=== PATIENT | female | born 1985 | race Hispanic/Latino ===

== ENCOUNTER 2020-07-05 21:30 | Emergency (ER) | payer SELFPAY ==
[2020-07-06 00:28] LABS: Bacteria,Urine 4+ /HPF (Negative); Bilirubin,Urine NEG (Negative); Blood,Urine NEG (Negative); Color,Urine Amber (Yellow); Mucus,Urine 3+ /HPF
[2020-07-06 00:34] LABS: Amphetamine Screen,Urine PRESUMPTIVE POSITIVE; Benzodiazepines Screen,Urine PRESUMPTIVE NEGATIVE; Cannabinoid Screen,Urine PRESUMPTIVE POSITIVE; Cocaine Screen,Urine PRESUMPTIVE NEGATIVE; Methadone Screen,Urine PRESUMPTIVE NEGATIVE; Opiate Screen,Urine PRESUMPTIVE NEGATIVE
[2020-07-06 00:41] LABS: BUN/Creatinine Ratio 18; Blood Urea Nitrogen 16 mg/dL (7-17); Calcium 9.4 mg/dL (8.4-10.2); Hemolysis Index 14
[2020-07-06 01:07] LABS: Basophils % (Auto) 0.6 % (0.0-1.8); Eosinophils # (Auto) 0.2 K/mm3 (0.0-0.4); Eosinophils % (Auto) 2.6 % (0.0-4.3); Hematocrit 40.7 % (30.3-42.9); Hemoglobin 13.7 gm/dl (10.1-14.3); Lymphocytes # (Auto) 1.6 K/mm3 (1.2-5.4); Lymphocytes % (Auto) 22.1 % (13.4-35.0); Mean Corpuscular HGB Conc 34 % (30-34); Mean Corpuscular Volume 94 fl (79-97); Monocytes # (Auto) 0.5 K/mm3 (0.0-0.8); Monocytes % (Auto) 6.7 % (0.0-7.3); Platelet Count 219 K/mm3 (140-440); Red Blood Count 4.33 M/mm3 (3.65-5.03); Red Cell Distribution Width 13.4 % (13.2-15.2)
--- NOTE | 2020-07-06 06:48 | Emergency Department Report ---
ED Psych HPI - General Chief Complaint: Psych Stated Complaint: MH EVAL/SUICIDAL Time Seen by Provider: 07/06/20 06:11 Source: patient Mode of arrival: Ambulatory - History of Present Illness Initial Comments: 34-year-old female presents to ED for mental health evaluation. Patient has expressed some suicidal ideations to her family, saying she does not want to be in this world anymore and that her family would be better off without her. Patient reports she is with 2 children. States they are currently living with her [id number]. Patient reports a family history of depression in her mother, but states she has never been diagnosed with any psychiatric illness. Patient denies any current SI , HI, hallucinations. She also denies any drug and alcohol use. I asked patient why her family thinks that she is currently suicidal, however patient does not have an answer for me. MD Complaint: suicidal ideation -: unknown History of same: Yes Improves With: none Worsens With: none Associated Symptoms: denies other symptoms Treatments Prior to Arrival: none - Related Data Home Medications Medication Instructions Recorded Confirmed Last Taken Sertraline 100 mg PO DAILY 07/06/20 07/06/20 Unknown hydrOXYzine 25 mg PO Q6H PRN 07/06/20 07/06/20 Unknown Allergies Allergy/AdvReac Type Severity Reaction Status Date / Time No Known Allergies Allergy Unverified 07/05/20 23:59 ED Review of Systems ROS: Stated complaint: MH EVAL/SUICIDAL Other details as noted in HPI Comment: All other systems reviewed and negative Psychiatric: suicidal thoughts ED Past Medical Hx - Past Medical History Previous Medical History?: Yes Hx Psychiatric Treatment: Yes (Depression, Insominia) - Surgical History Past Surgical History?: No - Social History Smoking Status: Never Smoker Substance Use Type: None - Medications Home Medications: Home Medications Medication Instructions Recorded Confirmed Last Taken Type Sertraline 100 mg PO DAILY 07/06/20 07/06/20 Unknown History hydrOXYzine 25 mg PO Q6H PRN 07/06/20 07/06/20 Unknown History ED Physical Exam - General Limitations: No Limitations General appearance: alert, in no apparent distress - Head Head exam: Present: atraumatic, normocephalic - Eye Eye exam: Present: normal appearance, EOMI - ENT ENT exam: Present: mucous membranes moist - Neck Neck exam: Present: normal inspection - Respiratory Respiratory exam: Present: normal lung sounds bilaterally. Absent: respiratory distress - Cardiovascular Cardiovascular Exam: Present: regular rate, normal rhythm - GI/Abdominal GI/Abdominal exam: Absent: distended - Extremities Exam Extremities exam: Present: normal inspection - Neurological Exam Neurological exam: Present: alert, oriented X3 - Psychiatric Psychiatric exam: Present: depressed. Absent: suicidal ideation - Skin Skin exam: Present: warm, dry, intact, normal color ED Course Vital Signs 07/05/20 23:38 Temperature 97.7 F Pulse Rate 61 Respiratory 16 Rate Blood Pressure 157/78 O2 Sat by Pulse 100 Oximetry ED Medical Decision Making - Lab Data Result diagrams: 07/06/20 00:09 07/06/20 00:09 - Medical Decision Making 34-year-old female brought in by family for mental health evaluation. Patient has stated that she does not want to be in this world anymore and that her family would be better off without her. Family concerned about possible suicidal thoughts. Patient reports she has had some suicidal ideation previously, but she denies it currently. I asked patient why her family thinks that she is currently suicidal, however patient does not have an answer for me. Patient also denied any drug use, however her drug screen is positive for amphetamine and marijuana. Patient has been placed on 1013. She is medically clear for mental health evaluation. Critical care attestation.: If time is entered above; I have spent that time in minutes in the direct care of this critically ill patient, excluding procedure time. ED Disposition Condition: Stable Referrals: KELLIE CASTANEDA MD [Primary Care Provider] - 3-5 Days
[2020-07-06] MEDS ORDERED: POTASSIUM CHLORIDE ER 20 MEQ TAB PO ONE (06:50)
--- NOTE | 2020-07-06 10:09 | Consultation ---
History of Present Illness - Reason for Consult Consult date: 07/06/20 Reason for consult: suicidal thoughts - History of Present Psychiatric Illness Per ED assessment, "34-year-old female presents to ED for mental health evaluation. Patient has expressed some suicidal ideations to her family, saying she does not want to be in this world anymore and that her family would be better off without her. Patient reports she is with 2 children. States they are currently living with her [id number]. Patient reports a family history of depression in her mother, but states she has never been diagnosed with any psychiatric illness. Patient denies any current SI , HI, hallucinations. She also denies any drug and alcohol use." During my interview with the patient, she is awake, and pleasant. The patient says she was brought here because her family thinks she is suicidal. When asked did she feel this way, the patient says "I'm just tired of living." She says "and I'm tired of being ostracized by the people who are supposed to hold me close." She says she feels "just tired and want to move on but things keep happening to set her back." She says she had a suicide attempt a year ago. She says she was under "severe duress." The patient also says she was admitted once for "severe stress." The patient also verbalizes hallucinations by "flashing lights." She says "but they are not harmful." She says she was diagnosed with depression in the past and took zoloft. The patient says she "literally lost the entire side of her family last year except her mother." The patient verbalizes use of THC, but denies any other illicit drug use or alcohol. PAST PSYCHIATRIC HISTORY Diagnoses: Depression Suicide attempts or Self-harm behavior: "once" Prior psychiatric hospitalizations: Once Substance Abuse history: THC Previous psychiatric medications tried: Zoloft and hydroxyzine Outpatient treatment: Denies at present PAST MEDICAL HISTORY: none reported Family Psychiatric History: None reported or documented SOCIAL HISTORY Marital Status: Living Arrangements: Lives with family Employment Status: Unemployed Access to guns/weapons: Denies Education: high school History of Abuse: none reported Legal History: none reported REVIEW OF SYSTEMS Constitutional: Negative for weight loss ENT: Negative for stridor Respiratory: Negative for cough or hemoptysis All other systems reviewed and are negative MENTAL STATUS EXAMINATION General Appearance and Behavior: Age appropriate, good hygiene, wearing appropriate clothes, good eye contact, cooperative polite with questioning. Cooperation: Participating/engaged Psychomotor Behavior: unremarkable and within normal limits Mood: "down" Affect and affective range: congruent with mood Thought Process: goal directed Thought Content: hallucinations, suicidal thoughts Speech: Normal volume, Regular rate and rhythm, Intellectual Functioning: Average Suicidal Ideation: Passive Homicidal Ideation: Denies HI Impulse Control: Normal Insight and Judgment: Limited insight and judgment, Memory: Normal, Attention: Normal, Orientation: Alert, oriented, Assessment and Plan (1) Major Depressive Disorder (F33.1) Current Visit: Yes Status: Acute Treatment Start Zoloft 25mg po daily Start Abilify 5mg po daily Sitter: Per primary Medical: Per primary Disposition: Recommend acute inpatient psychiatric treatment. Case staffed with Dr. Oshea Will follow. Medications and Allergies Allergies Allergy/AdvReac Type Severity Reaction Status Date / Time No Known Allergies Allergy Unverified 07/05/20 23:59 Home Medications Medication Instructions Recorded Confirmed Last Taken Type Sertraline 100 mg PO DAILY 07/06/20 07/06/20 Unknown History hydrOXYzine 25 mg PO Q6H PRN 07/06/20 07/06/20 Unknown History Mental Status Exam - Vital signs Last Vital Signs Temp 97.7 F 07/06/20 06:50 Pulse 66 07/06/20 06:50 Resp 15 07/06/20 06:50 BP 117/89 07/06/20 06:50 Pulse Ox 99 07/06/20 06:50 Results Result Diagrams: 07/06/20 00:09 07/06/20 00:09 Abnormal lab results 07/06/20 07/06/20 07/06/20 Range/Units 00:07 00:09 00:09 Potassium (3.6-5.0) mmol/L Glucose (65-100) mg/dL Ur Specific [place] 1.032 H (1.003-1.030) Urine WBC (Auto) 9.0 H (0.0-6.0) /HPF Salicylates < 0.3 L (2.8-20.0) mg/dL Acetaminophen 5.0 L (10.0-30.0) ug/mL 07/06/20 Range/Units 00:09 Potassium 3.2 L (3.6-5.0) mmol/L Glucose 173 H (65-100) mg/dL Ur Specific [place] (1.003-1.030) Urine WBC (Auto) (0.0-6.0) /HPF Salicylates (2.8-20.0) mg/dL Acetaminophen (10.0-30.0) ug/mL All other labs normal.
[2020-07-06] MEDS: ARIPiprazole 5 MG TAB PO SCH (10:44)
[2020-07-06] MEDS: SERTRALINE 25 MG TAB PO SCH (10:44)
--- NOTE | 2020-07-07 08:09 | Progress Note ---
Subjective - Reason for Consult Consult date: 07/07/20 Reason for consult: SI - Chief Complaint Chief complaint: The patient is in bed awake. She is a/o x 3. She is calm and cooperative. Her mood appears elevated. She says she's doing "great," and slept "great." The patient denies SI/HI this morning, and states "I can't figure out why my family thinks this." When telling the patient when she was speaking to me yesterday she was giving indications of passive suicide. The patient then starts to say that at times it's hard for her to distinguish what reality is and what is not. 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 The patient says "If they are stuck, I feel like I need to help them. I'm not afraid of the . I pray to God that the spirits are not evil." She then says "I help get them to the place they need to be." The patient still verbalizes seeing flashes of light. REVIEW OF SYSTEMS Constitutional: Negative for weight loss ENT: Negative for stridor Respiratory: Negative for cough or hemoptysis All other systems reviewed and are negative MENTAL STATUS EXAMINATION General Appearance and Behavior: Age appropriate, good hygiene, wearing appropriate clothes, good eye contact, cooperative polite with questioning. Cooperation: Participating/engaged Psychomotor Behavior: unremarkable and within normal limits Mood: "down" Affect and affective range: congruent with mood Thought Process: illogical Thought Content: hallucinations, suicidal thoughts Speech: Normal volume, Regular rate and rhythm, Intellectual Functioning: Average Suicidal Ideation: Passive Homicidal Ideation: Denies HI Hallucinations: Visual Delusions: yes Impulse Control: Normal Insight and Judgment: Limited insight and judgment, Memory: Normal, Attention: Normal, Orientation: Alert, oriented, Assessment and Plan (1) Major Depressive Disorder (F33.1) Current Visit: Yes Status: Acute Treatment Continue Abilify and zoloft. Sitter: Per primary Medical: Per primary Disposition: Recommend acute inpatient psychiatric treatment. Case staffed with Dr. Oshea Will follow. Mental Status Exam - Vital signs Last Vital Signs Temp 97.6 F 07/07/20 07:49 Pulse 68 07/07/20 07:49 Resp 20 07/07/20 07:49 BP 104/69 07/07/20 07:49 Pulse Ox 96 07/07/20 07:49
[2020-07-07] MEDS: SERTRALINE 25 MG TAB PO SCH (11:54)
[2020-07-07] MEDS: ARIPiprazole 5 MG TAB PO SCH (11:54)
[2020-07-07 14:16] LABS: HCG Qualitative,Urine Negative (Negative)
[2020-07-08 08:38] VITALS: BP 109/65
--- NOTE | 2020-07-08 08:44 | Progress Note ---
Subjective - Reason for Consult Consult date: 07/08/20 Reason for consult: SI - Chief Complaint Chief complaint: The patient is in bed awake. She is a/o x 3. She is calm and cooperative. Her mood is pleasant. She greets me upon entering the room. She says her mood is "pretty good." The patient states "I've gotten much needed rest since being here." She says "my thoughts are so much clearer." The patient denies SI/HI. She states "I really never was, I think I was really just tired and maybe didn't word it right." When asking about the flashing lights, the patient replies "at times, but that has been going on awhile." The patient states, "I do believe in spirits and there a lot of people who believe in stuff like that but does that make them crazy." She says "but I do understand how somebody who doesn't understand it might think that." REVIEW OF SYSTEMS Constitutional: Negative for weight loss ENT: Negative for stridor Respiratory: Negative for cough or hemoptysis All other systems reviewed and are negative MENTAL STATUS EXAMINATION General Appearance and Behavior: Age appropriate, good hygiene, wearing appropriate clothes, good eye contact, cooperative polite with questioning. Cooperation: Participating/engaged Psychomotor Behavior: unremarkable and within normal limits Mood: "pretty good" Affect and affective range: congruent with mood Thought Process: logical Thought Content: None Speech: Normal volume, Regular rate and rhythm Suicidal Ideation: Denies Homicidal Ideation: Denies Hallucinations: Visual Delusions: None elicited Impulse Control: Normal Insight and Judgment: Limited insight and judgment, Memory: Normal, Attention: Normal, Orientation: Alert, oriented, Assessment and Plan (1) Major Depressive Disorder (F33.1) Current Visit: Yes Status: Acute Treatment Scripts Abilify 5mg po daily Zoloft 25mg po daily Sitter: Per primary Medical: Per primary Disposition: Do not recommend acute inpatient psychiatric treatment. The patient verbalized understanding that if suicidal thoughts are to arise or any fear of endangerment, she is to seek immediate assistance including 911, ER or the crisis hotline. The sewer line repairer is to further discuss the safety plan with the patient The patient is to follow up with outpatient psych in 7 to 14 days upon discharg e. The sewer line repairer is to give the patient outpatient resources for medication management and CBT Will sign off. Thank you for this consult. Case staffed with Dr. Oshea. \\ Mental Status Exam - Vital signs Last Vital Signs Temp 98.6 F 07/08/20 01:00 Pulse 69 07/08/20 01:00 Resp 20 07/08/20 01:00 BP 117/63 07/08/20 01:00 Pulse Ox 100 07/08/20 01:00
[2020-07-08] MEDS: SERTRALINE 25 MG TAB PO SCH (11:06)
[2020-07-08] MEDS: ARIPiprazole 5 MG TAB PO SCH (11:31)
== END 2020-07-08 12:32 | disposition home or self-care (01) ==
LOC: ED 21:30
DX: F32.9 Major depressive disorder, single episode, unspecified (principal); Z79.899 Other long term (current) drug therapy
CPT/HCPCS: 36415; 80048; 80307; 80320; 81001; 81025; 84132; 85025; 87076; 87086; 87186; G0480